=== PATIENT | female | born 1985 | race African-American/Black ===

== ENCOUNTER 2019-04-03 08:52 | Emergency (ER) | payer OTHER ==
[~2019-04-03] VITALS: Ht 149.9 cm; Wt 88.0 kg
[2019-04-03 10:01] VITALS: BP 130/87
== END 2019-04-03 11:59 | disposition home or self-care (01) ==
LOC: EDSEX 08:52 → ER 08:52
DX: S16.1XXA Strain of muscle, fascia and tendon at neck level, initial encounter (principal); M25.512 Pain in left shoulder; R07.89 Other chest pain; M79.652 Pain in left thigh; M79.602 Pain in left arm; V49.49XA Driver injured in collision with other motor vehicles in traffic accident, initial encounter; Y93.89 Activity, other specified; Y92.410 Unspecified street and highway as the place of occurrence of the external cause
CPT/HCPCS: 99283